=== PATIENT | male | born 1955 | race Caucasian/White ===

== ENCOUNTER 2017-04-08 16:43 | Emergency (ER) | payer BC ==
[~2017-04-08] VITALS: Ht 172.7 cm; Wt 87.5 kg
[2017-04-08 17:14] LABS: HEMATOCRIT 45.3 % (38.0-50.0); HEMOGLOBIN 15.5 G/DL (12.5-16.6); MCH 31.4 PG (29.0-34.0); MCHC 34.2 G/DL (30.0-36.0); MCV 91.7 FL (86-99); PLATELET COUNT 320 K/uL (156-360); RBC DIS.WIDTH-CV 12.2 % (11.8-14.6); RBC DIS.WIDTH-SD 41.1 % (39-53); RED BLOOD COUNT 4.94 M/uL (4.00-5.50); WHITE BLOOD COUNT 10.5 K/uL (4.1-10.2)
[2017-04-08 17:23] LABS: CHLORIDE 105 mEq/L (99-109); POTASSIUM 4.2 mEq/L (3.7-5.4); SODIUM 140 mEq/L (136-147)
[2017-04-08 17:25] LABS: GLUCOSE 93 mg/dL (70-99)
[2017-04-08 17:29] LABS: CREATININE 1.2 mg/dL (0.6-1.3); GFR ESTIMATE (CALCULATED) > 59 mL/min/ (58.99-99999)
[2017-04-08 17:30] LABS: UREA NITROGEN (BUN) 15 mg/dL (9-23)
[2017-04-08 17:35] LABS: TROP-I INTERPRETATION NEGATIVE; TROPONIN-I < 0.01 ng/mL (0.0-0.30)
[2017-04-08 21:17] LABS: TROP-I INTERPRETATION NEGATIVE; TROPONIN-I < 0.01 ng/mL (0.0-0.30)
[2017-04-08 21:25] VITALS: BP 120/81
== END 2017-04-08 21:28 | disposition home or self-care (01) ==
LOC: EME 16:43
PROVIDERS: Physician Assistant Medical
DX: R07.89 Other chest pain (principal); I10 Essential (primary) hypertension; E78.5 Hyperlipidemia, unspecified; I25.2 Old myocardial infarction; Z85.9 Personal history of malignant neoplasm, unspecified
CPT/HCPCS: 71046; 80048; 84484; 85027; 93005; 99281; 99284